=== PATIENT | male | born 1985 | race American Indian/Alaskan Native ===

== ENCOUNTER 2016-08-01 04:22 | Emergency (ER) | payer SELFPAY ==
[2016-08-01 12:57] LABS: Bilirubin,Urine NEG (Negative); Blood,Urine NEG (Negative); Ketones,Urine NEG (Negative); Leukocyte Esterase,Urine NEG (Negative); Nitrite,Urine NEG (Negative); Protein,Urine <15 mg/dL mg/dL (Negative); Urobilinogen,Urine < 2.0 mg/dL (<2.0); WBC,Urine < 1.0 /HPF (0.0-6.0)
[2016-08-01 14:00] LABS: Basophils % (Auto) 0.8 % (0.0-1.8); Eosinophils % (Auto) 0.2 % (0.0-4.3); Hemoglobin 15.4 gm/dl (11.8-15.2); Mean Corpuscular HGB Conc 34 % (32-34); Mean Corpuscular Hemoglobin 30 pg (28-32); Mean Corpuscular Volume 90 fl (84-94); Platelet Count 247 K/mm3 (140-440); Red Blood Count 5.11 M/mm3 (3.65-5.03); Red Cell Distribution Width 13.5 % (13.2-15.2); White Blood Count 5.1 K/mm3 (4.5-11.0)
[2016-08-01 14:17] LABS: Amylase 107 units/L (27-131); Anion Gap 14 mmol/L; BUN/Creatinine Ratio 6.25; Blood Urea Nitrogen 5 mg/dL (9-20); Calcium 9.6 mg/dL (8.4-10.2); Carbon Dioxide 26 mmol/L (22-30); Chloride 102.4 mmol/L (98-107); Glucose 93 mg/dL (75-100); Lipase 26 units/L (13-60); Potassium 4.1 mmol/L (3.6-5.0); Sodium 138 mmol/L (137-145)
[2016-08-01] MEDS ORDERED: ALUM-MAG HYDROX-SIMETH 200-200-20MG/5ML PO ONE (15:04)
[2016-08-01] MEDS ORDERED: LIDOCAINE VISCOUS 2% PO ONE (15:04)
--- NOTE | 2016-08-01 15:20 | Emergency Department Report ---
Entered by CORWIN PIERCE, acting as scribe for RAKESH DELVALLE PA. ED Abdominal Pain HPI - General Chief Complaint: Abdominal Pain Stated Complaint: LUQ abdominal pain Time Seen by Provider: 08/01/16 12:00 Source: patient Mode of arrival: Ambulatory Limitations: No Limitations - History of Present Illness Initial Comments: 31 year old male presents to the ED for evaluation of burning left upper abdominal pain. Patient reports pain radiates to left mid back. Notes associated subjective fever and urinary frequency. Patient also reports excessive EtOH use for several weeks. Patient is concerned about possible pancreatitis. Denies N/V/D, chest pain, shortness of breath, penile discharge, hematuria, sick contacts, Hx kidney stones, and previous similar episodes. MD Complaint: abdominal pain Location: LUQ Radiation: back (left mid back) Quality: burning Consistency: constant Improves With: nothing Worsens With: nothing Associated Symptoms: fever (subjective), other (urinary frequency). denies: nausea, vomiting, diarrhea, chills, dysuria - Related Data Allergies Allergy/AdvReac Type Severity Reaction Status Date / Time No Known Allergies Allergy Unverified 08/01/16 08:22 ED Review of Systems Comment: All other systems reviewed and negative Constitutional: fever (subjective). denies: chills Respiratory: denies: shortness of breath Cardiovascular: denies: chest pain Gastrointestinal: abdominal pain (left upper quadrant). denies: nausea, vomiting, diarrhea Genitourinary: frequency. denies: dysuria, hematuria, discharge Musculoskeletal: back pain (radiated pain to left mid back) ED Physical Exam - General Limitations: No Limitations General appearance: other (The patient is well-developed and well-nourished. Patient is in NAD.) - Head Head exam: Present: atraumatic, normocephalic - Respiratory Respiratory exam: Present: normal lung sounds bilaterally. Absent: respiratory distress, wheezes, rales, rhonchi - Cardiovascular Cardiovascular Exam: Present: regular rate, normal rhythm, normal heart sounds. Absent: systolic murmur, diastolic murmur, rubs, gallop - GI/Abdominal GI/Abdominal exam: Present: soft, normal bowel sounds. Absent: distended, tenderness, guarding, rebound, organomegaly, pulsatile mass - Back Exam Back exam: Present: normal inspection. Absent: tenderness, CVA tenderness (R), CVA tenderness (L) - Neurological Exam Neurological exam: Present: alert, oriented X3 - Psychiatric Psychiatric exam: Present: normal affect, normal mood ED Course Vital Signs 08/01/16 08/01/16 08:23 13:53 Temperature 98.7 F Pulse Rate 77 Respiratory 18 20 Rate Blood Pressure 135/93 [Left] O2 Sat by Pulse 100 99 Oximetry ED Medical Decision Making - Lab Data Result diagrams: 08/01/16 13:46 08/01/16 13:46 Vital Signs 08/01/16 08/01/16 08:23 13:53 Temperature 98.7 F Pulse Rate 77 Respiratory 18 20 Rate Blood Pressure 135/93 [Left] O2 Sat by Pulse 100 99 Oximetry Lab Results 08/01/16 08/01/16 08/01/16 Range/Units 12:32 13:46 13:46 WBC 5.1 (4.5-11.0) K/mm3 RBC 5.11 H (3.65-5.03) M/mm3 Hgb 15.4 H (11.8-15.2) gm/dl Hct 46.0 H (35.5-45.6) % MCV 90 (84-94) fl MCH 30 (28-32) pg MCHC 34 (32-34) % RDW 13.5 (13.2-15.2) % Plt Count 247 (140-440) K/mm3 Lymph % (Auto) 32.8 (13.4-35.0) % [place] % (Auto) 7.1 (0.0-7.3) % Eos % (Auto) 0.2 (0.0-4.3) % Baso % (Auto) 0.8 (0.0-1.8) % Lymph # 1.7 (1.2-5.4) K/mm3 [place] # 0.4 (0.0-0.8) K/mm3 Eos # 0.0 (0.0-0.4) K/mm3 Baso # 0.0 (0.0-0.1) K/mm3 Seg Neutrophils % 59.1 (40.0-70.0) % Seg Neutrophils # 3.0 (1.8-7.7) K/mm3 Sodium 138 (137-145) mmol/L Potassium 4.1 (3.6-5.0) mmol/L Chloride 102.4 (98-107) mmol/L Carbon Dioxide 26 (22-30) mmol/L Anion Gap 14 mmol/L BUN 5 L (9-20) mg/dL Creatinine 0.8 (0.8-1.5) mg/dL Estimated GFR > 60 ml/min BUN/Creatinine Ratio 6.25 % Glucose 93 (75-100) mg/dL Calcium 9.6 (8.4-10.2) mg/dL Amylase 107 (27-131) units/L Lipase 26 (13-60) units/L Urine Color Yellow (Yellow) Urine Turbidity Clear (Clear) Urine pH 7.0 (5.0-7.0) Ur Specific [place] 1.006 (1.003-1.030) Urine Protein <15 mg/dl (Negative) mg/dL Urine Glucose (UA) Neg (Negative) mg/dL Urine Ketones Neg (Negative) mg/dL Urine Blood Neg (Negative) Urine Nitrite Neg (Negative) Urine Bilirubin Neg (Negative) Urine Urobilinogen < 2.0 (<2.0) mg/dL Ur Leukocyte Esterase Neg (Negative) Urine WBC (Auto) < 1.0 (0.0-6.0) /HPF Urine RBC (Auto) 1.0 (0.0-6.0) /HPF U Epithel Cells (Auto) < 1.0 (0-13.0) /HPF - Medical Decision Making 31 year old male presents to the ED complaining of burning left upper abdominal pain with radiation to left mid back. His physical exam is unremarkable. His urinalysis and lab results are within normal limits. Patient is in no acute distress at this time. He will be discharged home and is encouraged to follow up with a primary care provider. He is encouraged to return to the emergency room for any worsening symptoms. ED Disposition Clinical Impression: Abdominal pain Qualifiers: Abdominal location: left upper quadrant Qualified Code(s): R10.12 - Left upper quadrant pain Disposition: DISCHARGED TO HOME OR SELFCARE Is pt being admited?: No Does the pt Need Aspirin: No Condition: Stable Instructions: Abdominal Pain (ED) Additional Instructions: Follow-up with primary care provider. Return to the emergency department if symptoms worsen. Referrals: PRIMARY CARE, [Primary Care Provider] - 3-5 Days [facility] [Outside] - 3-5 Days Forms: Work/School Release Form(ED) Time of Disposition: 15:15 This documentation as recorded by the STAN kent REBEKAH,accurately reflects the service I personally performed and the decisions made by ,RAKESH DELVALLE PA.
[2016-08-01 15:25] VITALS: BP 148/82
== END 2016-08-01 15:25 | disposition home or self-care (01) ==
LOC: ED 04:22
DX: R10.12 Left upper quadrant pain (principal)
CPT/HCPCS: 36415; 80048; 81001; 82150; 83690; 85025; 99283